=== PATIENT | female | born 1990 | race Caucasian/White ===

== ENCOUNTER 2023-01-20 01:06 | Day surgery (SDC) | payer BC, SELFPAY ==
--- NOTE | 2023-01-11 10:06 | SUR.PREOP ---
Report to the Outpatient Waiting Room, entrance under the green pavilion located off [facility], at time 0600 on date 01/20/23. Planned Procedure Time: 0730. Time changes happen often and if your time is changed the preop area will call you the afternoon before. - You and your visitor will be asked to self-screen and do not enter if you have any COVID symptoms. - Only one visitor is requested with a max of two and NO children visitors are allowed at this time. - The patient visitor may be requested to leave or wait in car when not with patient due to distancing restrictions. - A mask is optional within the hospital at this time. Patients may have clear liquids (water, carbonated beverages, clear teas, apple juice) until 3 hours prior to surgery with a maximum of 20 ounces. - NO CLEAR LIQUIDS AFTER 0430 - No food from midnight until time of surgery - Infants may have breast milk until 4 hours before surgery, infant formula 6 hours prior to surgery. - Children will be allowed to drink immediately following surgery. If applicable, please bring a bottle or sippy cup to assist with drinking. Juice, water, soda, and popsicles are readily available. For infants on formula, please bring formula the day of surgery. Pacifiers are allowed. Take the following medications with a SIP of water the morning of surgery: AMLODIPINE, BUPROPION & BRING YOUR INHALER DAY OF SURGERY DO NOT STOP ANY OF YOUR OTHER PRESCRIPTION MEDICATIONS PRIOR TO SURGERY ?EXCEPT THE FOLLOWING Medications to discontinue per physician N/A Date to take last dose N/A Please no make-up, nail setswana, hairspray, perfume, deodorant, or body powder the day of surgery. No jewelry (including any body piercings) or valuables the day of surgery, leave them at home. Please take a shower or bath the night before, or the morning of, surgery with an antibacterial soap. Wear comfortable, loose fitting clothing. Children are encouraged to wear pajamas. - Jewelry must be removed prior to entering the operating room. Rings and piercings that are not removed may be cut off. - The hospital will not accept responsibility for valuables. - Please leave all valuables, including medications, at home the day of surgery. If you are going home after surgery, a licensed independent driver must drive you home. - NO public transportation without another adult if you receive anesthesia. - We recommend that an adult stay with you for 24 hours following discharge. - We also recommend that you do not drive, make important decision, drink alcoholic beverages, or take any drugs that were not prescribed by your health care provider for at least 24 hours after your discharge time. For Pediatric surgeries, we recommend two adults accompany the child home. Follow any additional instructions given to you from your surgeon. If you or anyone in your household have experienced Covid symptoms in the past week, please notify your surgeon or the nurse liaison at the phone number below for possible testing. Telephone instructions given to CIARA ROBERTS and asked if any additional questions and then verbalized understanding. Patient advised to call surgeon office or pre surgery nurse liaison [phone] if any additional questions.
[2023-01-11 10:25] VITALS: BMI 28.9
[2023-01-20] VITALS (9 sets, daily range): BP systolic 122–137; BP diastolic 66–82; PULSE 72–94; RESP 12–18; TEMP 37.2; O2SAT 100
[2023-01-20] MEDS: GABAPENTIN 300 MG CAPSULE PO (06:22)
[2023-01-20] MEDS: ACETAMINOPHEN 500 MG TABLET 1000 MG PO (06:22)
--- NOTE | 2023-01-20 07:02 | WPDANESEPPF ---
Anes - Initial Pre Proc Eval Procedure: Operation Date: 01/20/23 07:30 Proposed Procedures p Diagnostic Laparoscopy, Bilateral Salpingectomy - Hien Lopez DO Date/Time: 01/20/23 07:02 Surgeon: Hien Lopez DO Pre Op Diagnosis: Desires Surgical Sterility Patient Data Age: 32 Gender: F Height: 1.73 m Weight: 85.4 kg Last Vital Signs Temp 37.2 C 01/20/23 06:57 Pulse 72 01/20/23 06:57 Resp 16 01/20/23 06:57 BP 133/76 01/20/23 06:57 Pulse Ox 100 01/20/23 06:57 O2 Del Method Room Air 01/20/23 06:57 Allergies Allergy/AdvReac Type Severity Reaction Status Date / Time latex AdvReac Mild Redness of Verified 01/20/23 06:20 Skin Home Medications Medication Instructions Recorded Confirmed Type amlodipine 10 mg tablet 10 mg PO DAILY 01/11/23 01/11/23 History bupropion HCl 150 mg 24 hr tablet, 150 mg PO DAILY 01/11/23 01/11/23 History extended release buspirone 5 mg tablet 5 mg PO BID 01/11/23 01/11/23 History trazodone 50 mg tablet 25 mg PO HS 01/11/23 01/11/23 History Patient hx anesthesia problems: post op nausea/vomiting Family hx anesthesia problems: none Results Review: All pre-operative results and documents have been reviewed as part of the pre-operative evaluation. [facility] Past Medical History Medical History Anxiety Asthma Social History Social History Smoking status: Never smoker Substance use: current Substance use type: marijuana Other substance usage details: OCCASIONALLY Living arrangements: with family Spiritual care concerns: No Anes - Eval Final PreProcedure Day of Procedure 01/20/23 07:02 Patient weight: overweight Heart: regular rate and rhythm Lungs: clear to auscultation Airway: Mallampati scale class II Neurological: alert and oriented Last oral intake: >/= 8 hours ASA classification: II Emergent: no Anesthetic plan: proceed Anesthesia type and monitoring: general ETT and standard monitoring Results Review: All pre-operative results and documents have been reviewed as part of the pre-operative evaluation. Informed Consent: The patient's anesthetic plan and its attendant risks and benefits were discussed with the patient/family/POA. Questions were solicited and answers provided to the satisfaction of the patient/family/POA.
--- NOTE | 2023-01-20 07:16 | PM.IMHP ---
H&P: HPI History of Present Illness Date/Time: 01/20/23 07:16 Chief Complaint: I'm here for my surgery Narrative: Siomara presents desiring permanent sterilization with undesired fertility. Review of Systems Review of Systems: All systems reviewed & are unremarkable except as noted in HPI and below PMFSH Past Medical History Medical History Anxiety Asthma Social History Social History Smoking status: Never smoker Substance use: current Substance use type: marijuana Other substance usage details: OCCASIONALLY Living arrangements: with family Spiritual care concerns: No Meds Home Medications and Allergies Home Medications Medication Instructions Recorded Confirmed Type amlodipine 10 mg tablet 10 mg PO DAILY 01/11/23 01/11/23 History bupropion HCl 150 mg 24 hr tablet, 150 mg PO DAILY 01/11/23 01/11/23 History extended release buspirone 5 mg tablet 5 mg PO BID 01/11/23 01/11/23 History trazodone 50 mg tablet 25 mg PO HS 01/11/23 01/11/23 History Allergies Allergy/AdvReac Type Severity Reaction Status Date / Time latex AdvReac Mild Redness of Verified 01/20/23 06:20 Skin Vital Signs Vital Signs - 24 hr 01/20/23 06:57 Temperature 37.2 C Pulse Rate 72 Respiratory Rate 16 Blood Pressure 133/76 Pulse Oximetry 100 Oxygen Delivery Room Air Exam Const: General: comfortable and no acute distress Eyes: General: appearance normal, both eyes and all related structures Neck: Neck: supple Thyroid: thyroid normal Resp: Effort & Inspection: normal respiratory effort Auscultation: clear to auscultation bilaterally Cardio: Rate: regular rate Rhythm: regular rhythm GI: GI Palp: Yes Soft to palpation Auscultation: normal bowel sounds Skin: General skin exam: normal color and no rashes or lesions noted Extrem: General: normal to inspection Psych: Mental Status: mental status grossly normal Affect: normal affect Assessment and Plan Assessment and plan (1) Sterilization: Code(s): Z30.2 - Encounter for sterilization Status: Acute Plan Diagnostic laparoscopy, bilateral salpingectomy
--- NOTE | 2023-01-20 07:17 | WPDHPUPDATE1 ---
History and Physical Update Update Date/Time: 01/20/23 07:17 History and Physical has been reviewed, including an updated exam of the patient. There are NO changes in the patient's condition. Risks, benefits, and alternatives have been discussed and questions answered. Patient agrees to proceed with procedure.
[2023-01-20] MEDS: SCOPOLAMINE 1.5 MG PATCH TRANSDERM (07:24)
[2023-01-20] MEDS: LACTATED RINGERS 1,000 ML 30 ML IV CONT ×2 (07:24→08:24)
[2023-01-20] MEDS: KETOROLAC 30 MG/ML VIAL (*BKC) IV PUSH (08:13)
[2023-01-20] MEDS: BUPIVACAINE/EPINEPHRINE 0.25% 50 ML VIAL 10 ML INFILTRATE (08:15)
--- NOTE | 2023-01-20 08:23 | W.PM.PROC2 ---
Procedure Note - Detailed Date of Procedure 01/20/23 Pre-op Diagnosis Desires Surgical Sterility Post-op Diagnosis Same Procedure Performed Diagnostic laparoscopy, bilateral salpingectomy Surgeon Hien Lopez DO Government Relations Manager [place] Anesthesia General Indications Desires permanent sterilization Findings Normal appearing vulva and vaginal canal. Anteverted uterus. normal uterus, tubes and ovaries. Small amount of retrograde menstrual blood in the pelvis. The liver, gallbladder and bowel were normal. There were some omental adhesions in the RLQ. Her 12th rib was very prominent and protruded into the abdominal cavity. Description of Procedure The patient was taken to the operating room where she was placed under general anesthesia. She was prepped and draped in the normal sterile fashion in a dorsal lithotomy position. No preoperative antibiotics were indicated. A time-out was performed. A speculum was placed in the vagina and the cervix was visualized. The anterior lip of the cervix was grasped with a long Allis clamp and the cervix was sequentially dilated to accommodate a Kroner uterine manipulator. The manipulator was placed, the speculum was removed and gloves were changed. Attention was then turned to the abdomen. The skin above the umbilicus was grasped with 2 penetrating towel clamps and was elevated while injected with local. Small incision was made and a Veress needle was introduced. The saline water drop test was performed to confirm intraperitoneal placement. CO2 insufflation was started on the patient's abdomen was brought to a filling pressure of 15 mmHg. The Veress needle was then removed and replaced with a 5 mm Optiview trocar which was introduced under direct visualization. Survey of the abdomen revealed no evidence of bowel or vascular injury upon initial entry. Patient was then placed in steep Trendelenburg position. Survey of the abdomen revealed the above-mentioned findings. Additional port sites in the right and left lower quadrants were identified, injected and incised. Two additional 5 mm trocars were introduced under direct visualization. The pelvic organs were then surveyed. The right tube was elevated and was cauterized and transected off using the LigaSure. It was then passed off through the clinical lab assistant port. Physiological adhesions from the sigmoid colon to the left pelvis prevented good visualization of the distal portion of the tube, so these were released using cold cut with LigaSure. The left tube was then elevated and was cauterized and transected off also using the LigaSure in an identical fashion. The left tube was then retrieved through the clinical lab assistant port and passed off. All pedicles were reinspected and found to be hemostatic. The instruments and trocars removed and the CO2 gas was allowed to escape. The abdominal incisions were closed with subcuticular 4-0 Monocryl. The uterine manipulator was removed. The patient was taken to the recovery room in stable condition. All instrument and sponge counts were correct at the conclusion of the procedure. Estimated Blood Loss 5 IV Fluids 1,000 Drains No Packing No Pathology Yes Complications No immediate complications Condition Stable Disposition PACU
[2023-01-20] MEDS: oxyCODONE HCL (*CRX) 5 MG TAB IR PO (09:43)
[2023-01-20] MEDS: ONDANSETRON INJ 4 MG/2 ML VIAL IV PUSH (10:06)
== END 2023-01-20 11:05 | disposition home or self-care (01) ==
PROVIDERS: PCP Family Medicine; Visit Provider Obstetrics & Gynecology Gynecologic Oncology
PROC: (CPT 49320; principal; 2023-01-20 07:30)
DX: Z30.2 Encounter for sterilization (principal)
CPT/HCPCS: 58661; 88302; A9270; J1100; J1885; J2250; J2405; J2704; J2710; J3010; J7030; J7120